=== PATIENT | female | born 1955 | race Hispanic/Latino ===

== ENCOUNTER 2016-09-14 08:17 | Day surgery (SDC) | payer OTHER ==
[~2016-09-14] VITALS: Ht 162.6 cm; Wt 79.0 kg
[~2016-09-14 08:17] MED LIST: 0.9% Sodium Chloride 1,000 ML IV SCH; CEPH-512 PO; FLUT16SP NS; OMEP20CA11 PO; PARO40TA3 PO; Sodium Chloride LOK Flush 10 mL Syringe IV PRN; fentaNYL-PF 50 mCg/mL 2 mL Inj IVPUSH PRN
[2016-09-14 08:35] VITALS: BP 117/76; PULSE 69; RESP 15; O2SAT 96
[2016-09-14 10:42] VITALS: BP 121/73; PULSE 66; RESP 16; O2SAT 94
[2016-09-14 10:53] VITALS: BP 112/69; PULSE 65; RESP 14; O2SAT 93
[2016-09-14 11:01] VITALS: BP 112/69; PULSE 67; RESP 14; O2SAT 93
[2016-09-14 11:11] VITALS: BP 121/80; PULSE 63; RESP 16; O2SAT 95
--- NOTE | 2016-09-14 14:24 | ENDO ---
[address] [address] ENDOSCOPY PROCEDURE PATIENT: JEREMIAH FLOWER : 1955 MR#: [id number] ADMIT: 09/14/2016 JOB ID: [id number] DATE: 09/14/2016 PRIMARY PROVIDER: Jennifer Connors PA-C PROCEDURE: Esophagogastroduodenoscopy with biopsies. INDICATIONS: A 61-year-old female with symptoms of reflux. At one point she had some regurgitation and even blood streaking in the emesis earlier this fall. Endoscopic interrogation is pursued. EQUIPMENT: GIF H 180 J. SEDATION: 1. 3 mg Versed. 2. 75 mcg fentanyl. COMPLICATIONS: None identified. PROCEDURAL INFORMATION: After the risks and benefits were explained, written and verbal informed consent was obtained. The patient was brought into the endoscopy suite and placed into the left lateral decubitus position. Sedation was achieved using the above-stated medications with the addition of oxygen via nasal cannula. The scope was introduced into the mouth through the bite block, and advanced to the second portion of the duodenum. The scope was slowly withdrawn to carefully examine the mucosa for any defects or lesions. Retroflexed views were accomplished in the stomach. The stomach was decompressed. The scope removed from the patient who tolerated the procedure well. FINDINGS: 1. Duodenum: This appeared normal from the bulb through to the second portion. 2. Stomach: The patient had a focal gastropathy in the midbody which was targeted for biopsy. There were several other diminutive benign small polyps that were removed with cold forceps and submitted for histopathology. Retroflexed views of the LES otherwise disclosed a small sliding hiatal hernia. No outlet obstruction. No ulcers. No mass lesions. 3. Esophagus: The squamocolumnar junction generally correlated with the top of the gastric folds. The GEJ was at about 35 cm from the incisors. There were a couple of islands of salmon-colored mucosa that were definitely proximal to the GE junction. These were sampled for histopathologic analysis in essence to exclude the presence of specialized intestinal metaplasia. I did not see any acute erosive changes. No strictures. No mass lesions. Subtle sliding hiatal hernia appreciated. The remainder of the esophagus was normal. ENDOSCOPIC DIAGNOSES: 1. Small hiatal hernia. 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 3. Gastric polyps. 4. Gastropathy. RECOMMENDATIONS: 1. Await histopathology. 2. If Ramirez mucosa is identified, then repeat EGD for surveillance will be requested in 9-12 months. 3. Continue anti-reflux therapy as recommended in the office. 4. Followup in about 6-8 weeks for a progress report.
--- NOTE | 2016-09-15 11:01 | PATH ---
SURGICAL PATHOLOGY Attending Physician:Nigel Gonzalez CASE STATUS: Signed Out PATIENT NAME: JEREMIAH FLOWER PID: [id number] : 1955 DATE COLLECTED:09/14/2016 15:54 SPECIMEN: 1: Stomach, Polyp, Biopsy 2: Gastric, Biopsy 3: Esophagus, Biopsy CLINICAL HISTORY: 1. GASTRIC POLYP BX X2 2. GASTRIC BX 3. DISTAL ESOPHAGUS BX FINAL DIAGNOSIS: 1.GASTRIC POLYP BIOPSY: FUNDIC GLAND POLYPS. Negative for intestinal metaplasia. Negative for dysplasia and malignancy. 2.GASTRIC BIOPSY: BODY MUCOSA WITH NO DIAGNOSTIC ALTERATIONS. Negative for Helicobacter organisms. Negative for intestinal metaplasia. Negative for dysplasia and malignancy. 3.DISTAL ESOPHAGUS BIOPSY: SQUAMOCOLUMNAR MUCOSA WITH NO DIAGNOSTIC ALTERATIONS. Negative for intestinal/Ramirez' s metaplasia. Negative for dysplasia and malignancy. ICD10 code K31.7 GROSS DESCRIPTION: The specimen is received in three formalin filled containers labeled with the patient's name. 1). The specimen is sublabeled "gastric polyp" and consists of 2 portions of tissue which aggregate to 0.3 x 0.3 x 0.3 CM. The specimen is entirely submitted in cassette 1A. 2). The specimen is sublabeled "gastric" and consists of a 0.3 x 0.2 x 0.2 CM portion of tissue which is entirely submitted in cassette 2A. 3). The specimen is sublabeled "distal esophagus" and consists of 2 tiny portions of tissue which aggregate to 0.2 x 0.2 x 0.2 CM. The specimen is entirely submitted in cassette 3A. 09/14/2016 [facility] MICRO DESCRIPTION: See diagnosis. ICD-9 CODES: CPT CODES: 1: 35280 2: 17825 3: 26621 Electronically Signed Out Sue Duffy MD [facility] Pathology [facility] [address], [place] [address] Technical component performed at [employer], [facility] [address], [place], [address]
== END 2016-09-14 23:59 | disposition home or self-care (01) ==
LOC: END 08:17
PROVIDERS: ATTEND Internal Medicine Gastroenterology
DX: K31.7 Polyp of stomach and duodenum (principal); K44.9 Diaphragmatic hernia without obstruction or gangrene; K21.9 Gastro-esophageal reflux disease without esophagitis; R13.12 Dysphagia, oropharyngeal phase; K27.9 Peptic ulcer, site unspecified, unspecified as acute or chronic, without hemorrhage or perforation; M19.90 Unspecified osteoarthritis, unspecified site; F41.9 Anxiety disorder, unspecified; F32.9 Major depressive disorder, single episode, unspecified; M06.00 Rheumatoid arthritis without rheumatoid factor, unspecified site; K75.81 Nonalcoholic steatohepatitis (NASH)
CPT/HCPCS: 43239; 88305; G0500; J7030

== ENCOUNTER 2016-12-20 10:36 | Day surgery (SDC) | payer OTHER ==
[~2016-12-20] VITALS: Ht 162.6 cm; Wt 79.4 kg
[~2016-12-20 10:36] MED LIST changes: -CEPH-512 PO; +NYST1000 PO
[2016-12-20 11:02] VITALS: BP 129/77; PULSE 63; RESP 14; O2SAT 98
[2016-12-20 11:46] VITALS: BP 109/64; PULSE 64; RESP 16; O2SAT 92
[2016-12-20 11:56] VITALS: BP 99/59; PULSE 62; RESP 16; O2SAT 93
[2016-12-20 12:06] VITALS: BP 111/65; PULSE 63; RESP 16; O2SAT 95
--- NOTE | 2016-12-20 13:56 | ENDO ---
[address] [address] ENDOSCOPY PROCEDURE PATIENT: JEREMIAH FLOWER : 1955 MR#: [id number] ADMIT: 12/20/2016 JOB ID: [id number] DATE: 12/20/2016 PRIMARY PROVIDER: Jennifer Connors PA-C. PROCEDURE: Flexible sigmoidoscopy. INDICATIONS: A 61-year-old female with persistent intermittent red blood per rectum. That said, she has had a marked improvement overall simply by engaging in regular warm Epsom salt baths. EQUIPMENT: [id number]. SEDATION: 4 mg Versed, 100 mcg fentanyl. COMPLICATIONS: None identified. PROCEDURE INFORMATION: After the risks and benefits were explained, written and verbal informed consent was obtained, the patient was brought into the endoscopy suite and placed into the left lateral decubitus position. Sedation was achieved using the above-stated medications with the addition of oxygen via nasal cannula. A digital rectal examination was accomplished and revealed the presence of some mild to moderate internal hemorrhoids, mostly on the right side. Nothing thrombosed, no active bleeding. No mass lesions. The scope was introduced into the rectum and advanced under direct visualization to about 50 cm from the anal verge. The scope was slowly withdrawn to carefully examine the mucosa for any defects or lesions. Multiple direct views were made through the dentate line for exclusion of pathology. The colon was decompressed, the scope removed the patient who tolerated the procedure reasonably well. FINDINGS: No proctitis, no colitis. No polyps or mass lesions appreciated. Again, a couple of retained sutures were identified right at the level of the dentate line. There was no evidence of any active inflammation, no active bleeding. Mildly engorged hemorrhoids in the right side of the anal canal. Otherwise, no significant pathology. ENDOSCOPIC DIAGNOSES: Moderate grade 3 right-sided internal hemorrhoids. RECOMMENDATIONS: 1. Continue intermittent Epsom salt baths. 2. If persistent bleeding occurs, surgical evaluation would be advisable.
== END 2016-12-20 23:59 | disposition home or self-care (01) ==
LOC: END 10:36
PROVIDERS: ATTEND Internal Medicine Gastroenterology
DX: K62.5 Hemorrhage of anus and rectum (principal); K64.2 Third degree hemorrhoids; K21.9 Gastro-esophageal reflux disease without esophagitis; M06.00 Rheumatoid arthritis without rheumatoid factor, unspecified site; K75.81 Nonalcoholic steatohepatitis (NASH); F33.9 Major depressive disorder, recurrent, unspecified; K27.9 Peptic ulcer, site unspecified, unspecified as acute or chronic, without hemorrhage or perforation
CPT/HCPCS: 45330; G0500; J2250; J3010; J7030